=== PATIENT | female | born 1990 | race Caucasian/White ===

== ENCOUNTER 2017-08-06 18:14 | Emergency (ER) | payer OTHER ==
[~2017-08-06] VITALS: Ht 170.2 cm; Wt 55.5 kg
[~2017-08-06 18:14] MED LIST: IBUP800T23 PO; TRAM50 PO
[2017-08-06 18:32] VITALS: BP 109/67; PULSE 105; RESP 16; TEMP 100.6; O2SAT 99
[2017-08-06] MEDS ORDERED: OSEL75 PO (20:04)
--- NOTE | 2017-08-06 20:04 | PD ---
HPI Chief Complaint: Cold / Flu Symptoms Time Seen by Provider: 19:23 Travel History International Travel<30 days: No Contact w/Intl Traveler<30days: No Traveled to known affect area: No History of Present Illness HPI This is a 27-year-old female here with flulike illness since this morning. She is reporting fever, body aches, sore throat. Symptom severity is moderate. No aggravating or alleviating factors. No sick contacts or foreign travel. PFSH Past Medical History ADHD: Yes Asthma: Yes Bipolar Disorder: Yes Anxiety: Yes Diminished Hearing: No Thyroid Disease: Yes Tetanus Vaccination: Unknown Influenza Vaccination: No ?: Unknown LMP: 06/28/17 : 0 Past Surgical History Oral Surgery: Yes Other Surgery: Yes (ORAL SURG) Social History Alcohol Use: No Tobacco Use: No Substance Use: No Allergies-Medications (Allergen,Severity, Reaction): Coded Allergies: cefaclor (Unverified Allergy, Severe, HIVES; DIFFICULTY BREATHING; SWELLING, 08/06/17) codeine (Unverified Allergy, Severe, RASH ALL OVER, 08/06/17) penicillin G (Unverified Allergy, Severe, HIVES; DIFFICULTY BREATHING; SWELLING, 08/06/17) iodine (Unverified Allergy, Unknown, UNKNOWN, 08/06/17) potassium iodide (Unverified Allergy, Unknown, UNKNOWN, 08/06/17) povidone-iodine (Unverified Allergy, Unknown, UNKNOWN, 08/06/17) sodium iodide (Unverified Allergy, Unknown, UNKNOWN, 08/06/17) sodium iodide (Unverified Allergy, Unknown, UNKNOWN, 08/06/17) Reported Meds & Prescriptions Reported Meds & Active Scripts Active No Active Prescriptions or Reported Medications Review of Systems Except as stated in HPI: all other systems reviewed are Neg General / Constitutional: Positive: Fever Eyes: No: Visual changes HENT: Positive: Sore Throat, Congestion, No: Headaches Cardiovascular: No: Chest Pain or Discomfort Respiratory: Positive: Cough Gastrointestinal: No: Abdominal Pain Genitourinary: No: Dysuria Musculoskeletal: Positive: Myalgias Skin: No Rash Physical Exam Narrative GENERAL: Alert and well-appearing 27 year old female SKIN: Warm and dry. No rash HEAD: Normocephalic. EYES: No injection or drainage. Ear/nose/throat: No TM erythema. Clear nasal discharge. Mild pharyngeal erythema without tonsillar hypertrophy or exudate. Uvula is midline. Airway is patent. NECK: Supple. No meningismus CARDIOVASCULAR: Regular rate and rhythm RESPIRATORY: Breath sounds equal bilaterally. No accessory muscle use. GASTROINTESTINAL: Abdomen soft, non-tender, nondistended. MUSCULOSKELETAL: No cyanosis, or edema. BACK: Nontender without obvious deformity. No CVA tenderness. Data Data Last Documented VS Vital Signs Date Time Temp Pulse Resp B/P (MAP) Pulse Ox O2 Delivery O2 Flow Rate FiO2 08/06/17 19:25 18 99 Room Air 08/06/17 18:32 100.6 105 109/67 (81) MDM Medical Decision Making Medical Screen Exam Complete: Yes Emergency Medical Condition: Yes Differential Diagnosis Influenza, strep pharyngitis, bronchitis, pneumonia Narrative Course This is a 27-year-old female here with flulike illness since this morning. She is nontoxic-appearing. She is within the timeframe for treatment of Tamiflu and is requesting treatment. Diagnosis Primary Impression: Influenza-like illness Referrals: Primary Care Physician Additional Instructions: Tylenol and ibuprofen for fever. Stable hydrated by drinking plenty of fluid. Follow-up the primary doctor. Scripts Benzonatate (Tessalon Perles) 100 Mg Cap 200 MG PO TID Y for COUGH, #14 CAP 0 Refills Prov: Denice Gallagher 08/06/17 Oseltamivir (Tamiflu) 75 Mg Cap 75 MG PO BID for Mgmt Viral Infection for 5 Days, #10 CAP 0 Refills Prov: Denice Gallagher 08/06/17 Disposition: 01 DISCHARGE HOME Condition: Stable Denice Gallagher Aug 06, 2017 20:04
[2017-08-06] MEDS ORDERED: BENZ100 PO (20:05)
[2017-08-06 20:15] VITALS: BP 112/66; PULSE 96; RESP 18; O2SAT 99
== END 2017-08-06 20:21 | disposition home or self-care (01) ==
LOC: PHED 18:14 → PHEFT 20:21
DX: J11.1 Influenza due to unidentified influenza virus with other respiratory manifestations (principal); J45.909 Unspecified asthma, uncomplicated; F31.9 Bipolar disorder, unspecified; F41.9 Anxiety disorder, unspecified; F90.9 Attention-deficit hyperactivity disorder, unspecified type
CPT/HCPCS: 99283